=== PATIENT | male | born 1960 | race American Indian/Alaskan Native ===

== ENCOUNTER 2016-11-16 09:33 | Day surgery (SDC) | payer BC, OTHER ==
[~2016-11-16 09:33] MED LIST: ANCEF/STERILE WATER 2 GM/20 ML IV NR; GARAMYCIN 120 MG in NACL 0.9% 100 ML IV SCH; NACL 0.9% 1000 ML 1,000 ML IV SCH; PEPCID PO NR; VERSED IV NR
[2016-11-16] MEDS ORDERED: ZOFRAN IV PRN (10:22)
[2016-11-16] MEDS ORDERED: DILAUDID IV PRN (10:22)
[2016-11-16] MEDS ORDERED: PERCOCET 5/325 PO PRN (10:22)
--- NOTE | 2016-11-16 10:22 | Anesthesia Consultation ---
Anesthesia Consult and Med Hx Date of service: 11/16/16 - Airway Anesthetic Teeth Evaluation: Good ROM Head & Neck: Adequate Mental/Hyoid Distance: Adequate Mallampati Class: Class II Intubation Access Assessment: Probably Good - Pulmonary Exam CTA: Yes - Cardiac Exam Cardiac Exam: RRR - Pre-Operative Health Status ASA Pre-Surgery Classification: ASA2 Proposed Anesthetic Plan: General - Pulmonary Hx Smoking: No Hx Asthma: No Hx Sleep Apnea: No - Cardiovascular System Hx Hypertension: Yes Hx Coronary Artery Disease: No - Central Nervous System Hx Seizures: No CVA: No - Endocrine Hx Renal Disease: No Hx End Stage Renal Disease: No Hx Insulin Dependent Diabetes: No Hx Hypothyroidism: No - Other Systems Hx Obesity: Yes (BMI 30.1)
--- NOTE | 2016-11-16 10:23 | Anesthesia Day of Surgery ---
Anesthesia Day of Surgery - Day of Surgery Patient Examined: Yes Patient H&P Reviewed: Yes Patient is NPO: Yes Beta Blockers: Yes (TOOK LAST NIGHT)
[2016-11-16] MEDS ORDERED: SUBLIMAZE ONE (11:30)
[2016-11-16] MEDS ORDERED: XYLOCAINE MPF 2% ONE (11:30)
[2016-11-16] MEDS ORDERED: DIPRIVAN 10 MG/ML IV ONE (11:30)
--- NOTE | 2016-11-16 11:45 | Post Operative Note ---
Pre-op diagnosis: inc psa Post-op diagnosis: same Findings: as above Procedure: cysto pus bx Anesthesia: GETA Surgeon: SAKINA CASTELLANOS Estimated blood loss: minimal Pathology: list (prostate) Specimen disposition: to lab Condition: stable Disposition: PACU
--- NOTE | 2016-11-16 11:46 | Discharge Summary ---
Short Stay Discharge Plan Activity: other (no straining ) Weight Bearing Status: Full Weight Bearing Diet: low fat, low cholesterol, low salt Special Instructions: other (d/c paredes in rr ) Durable Medical Equipment Needed Upon Discharge: other (void x 2 prior to d/c .. inc fluids ) Follow up with: GENE POWELL MD [Primary Care Provider] - 7 Days SAKINA CASTELLANOS MD [Staff Physician] - 7 Days
[2016-11-16] MEDS ORDERED: DECADRON ONE (11:53)
[2016-11-16] MEDS ORDERED: ePHEDrine SULFATE ONE (12:15)
[2016-11-16] MEDS ORDERED: ZOFRAN ONE (12:23)
[2016-11-16] MEDS ORDERED: LASIX ONE (12:23)
[2016-11-16] MEDS ORDERED: WATER FOR IRRIG STERILE IR ONE (12:30)
--- NOTE | 2016-11-16 14:46 | Post Anesthesia Evaluation ---
- Post Anesthesia Evaluation Patient Participated: Yes Airway Patent: Yes Stable Respiratory Function: Yes Nausea/Vomiting: No Temp > 96.8F: Yes Pain Manageable: Yes Adequeate Hydration: Yes Anesthesia Complications: No Block Receding Appropriately: Not Applicable Patient on Ventilator: No
[2016-11-16 15:05] VITALS: BP 139/79
--- NOTE | 2016-11-16 19:48 | Operative Report ---
PREOPERATIVE DIAGNOSIS: Elevated PSA. POSTOPERATIVE DIAGNOSIS: Elevated PSA. PROCEDURE: Ultrasound-guided prostate biopsy. SURGEON: Jose Dave MD ANESTHESIA: General. FINDINGS: This is a gentleman we had in the office. We were going to do a biopsy, he became vasovagal and he almost passed out before we even did anything now presents for treatment under anesthesia. DESCRIPTION OF PROCEDURE: The patient was brought to the operating room and placed on the operating room table. Following induction of the anesthesia, placed in lithotomy position, prepped and draped in usual sterile fashion. Flexible cystoscopy revealed a normal prostatic urethra normal bladder. At this point, the ultrasound was placed and excellent visualization of the prostate was achieved. Biopsies of each quadrant were obtained under anesthesia, tolerated well. Good specimens were achieved. The patient was then brought to recovery room in stable condition. No significant complications. No significant bleeding. [place] catheter will be left for about an hour in recovery and go home without a catheter as long as it clears out. JOB# [id number] CLAUS/YARITZA
--- NOTE | 2016-11-17 08:34 | Ultrasound Report ---
ULTRASOUND GUIDE INTRAOPERATIVE: HISTORY: Prostate biopsy. FINDINGS: Endorectal ultrasound was provided by radiology during prostate biopsy by urology. No prostate measurements were obtained. Please correlate with the procedural report by Dr. Dave. IMPRESSION: Successful ultrasound-guided prostate biopsy.
== END 2016-11-16 15:15 | disposition home or self-care (01) ==
LOC: OR 09:33
PROVIDERS: ATTEND Urology
DX: N42.31 Prostatic intraepithelial neoplasia (principal); N41.1 Chronic prostatitis; I10 Essential (primary) hypertension; E66.9 Obesity, unspecified; Z68.30 Body mass index [BMI] 30.0-30.9, adult; Z82.49 Family history of ischemic heart disease and other diseases of the circulatory system
CPT/HCPCS: 36415; 55700; 76998; 84132; 88305; A4217; J0690; J1100; J1940; J2250; J2405; J2704; J3010; J7030